=== PATIENT | male | born 1985 | race Caucasian/White ===

== ENCOUNTER 2017-06-07 13:19 | Inpatient (IN) | payer SELFPAY ==
[~2017-06-07] VITALS: Ht 180.3 cm; Wt 68.6 kg
[~2017-06-07 13:19] MED LIST: CEPHALEXIN500 MG PO; CORTISPORIN OTI10 ML AU; DOXYCYCL HYC100 M4 PO; NAPROSYN500 MG PO; NO; ULTRAM50 M1 PO
--- NOTE | 2017-06-07 14:04 | NUR ---
PT AMBULATED OUT TO WAITING ROOM W/SISTER IN LAW IN STABLE CONDITION. PT INFORMED TO GET ME OR REGISTRATION IF HE HAS ANY NEEDS OR CONCERNS.
--- NOTE | 2017-06-07 14:45 | NUR ---
CALLED TO COME TO ER. NOT IN LOBBY. LOOKED OUTSIDE. WILL CALL AGAIN LATER.
--- NOTE | 2017-06-07 15:09 | NUR ---
RETURNED TO WAITING ROOM
--- NOTE | 2017-06-07 15:50 | NUR ---
TO ROOM 10 WITH SLOW BUT STEADY GAIT. STEPPING LIGHTLY
--- NOTE | 2017-06-07 16:34 | NUR ---
SBAR PRINTED TO FLOOR
[2017-06-07 16:53] LABS: HEMATOCRIT 44.4 % (39.0-50.0); HEMOGLOBIN 15.4 g/dl (14.0-18.0); IMMATURE GRANULOCYTES 0.3 % (0.0-1.0); MEAN CELL VOLUME 84.7 fL CALC (80.0-100.0); MEAN CORPUSCULAR HGB 29.4 pG CALC (26.0-32.0); MEAN CORPUSCULAR HGB CONC 34.7 g/L CALC (32.0-36.0); NEUT# 6.92 thou/uL (1.82-7.42); RED BLOOD COUNT 5.24 mill/uL (4.70-6.10); RED CELL DISTRI WIDTH 12.4 % (11.5-15.5)
--- NOTE | 2017-06-07 16:58 | NUR ---
MD AT BEDSIDE TO DISCUSS PLAN OF CARE.
--- NOTE | 2017-06-07 17:03 | NUR ---
ATTEMPT MADE TO CALL REPORT, SPOKE TO MARTHA. STATES "THE NURSE IS IN A ROOM, SHE WILL CALL YOU RIGHT BACK."
[2017-06-07 17:08] LABS: ALBUMIN 4.1 g/dL (3.2-5.0); ALKALINE PHOSPHATASE 73 u/l (38-126); ANION GAP 15 (6-22 (CALC)); BILIRUBIN, TOTAL 0.5 mg/dL (0.0-1.4); BUN 7 mg/dL (9-20); BUN/CREATININE RATIO 8 (12-20 (CALC)); CALCIUM 9.9 mg/dL (8.4-10.2); CARBON DIOXIDE 25 mmol/l (22-30); CHLORIDE 103 mmol/l (95-108); CREATININE 0.9 mg/dL (0.7-1.3); GFR > 60 ML/MIN (>=60 (CALC)); GFR FOR AFR.AMER. > 60 ML/MIN (>=60 (CALC)); GLUCOSE 104 mg/dL (75-110); POTASSIUM 3.8 mmol/l (3.5-5.1); SGOT/AST 33 u/l (17-59); SGPT/ALT 34 u/l (21-72); SODIUM 139 mmol/l (137-146); TOTAL PROTEIN 6.3 g/dL (6.3-8.2)
--- NOTE | 2017-06-07 17:09 | NUR ---
REPORT GIVEN TO BARTOLO CASTELAN.
[2017-06-07 17:16] VITALS: BP 118/73
--- NOTE | 2017-06-07 17:20 | NUR ---
PATIENT TRANSPORTED TO [facility] VIA STRETCHER IN STABLE CONDITION. BEDSIDE REPORT GIVEN TO BARTOLO CASTELAN. CARE RELINQUISHED.
--- NOTE | 2017-06-07 17:46 | NUR ---
PT ARRIVED TO FLOOR VIA STRETCHER ACCOMPANIED BY BARTOLO FUENTES. PT REPORTS SEVERE RECTAL PAIN, UNRELIEVED BY DILAUDID ADMINISTRATION IN ED. SIGNIFICANT OTHER AT BEDSIDE. REPORTING OF CONCERNS ENCOURAGED. PT ORIENTED TO ROOM AND EQUIPMENT. CALL LIGHT REVIEWED AND IN REACH. PT STATES UNDERSTANDING.
--- NOTE | 2017-06-07 18:00 | NUR ---
DR. STUBBS NOTIFIED OF CONSULT. NEW ORDERS FOR NPO, WARM SITZ BATH PRN AND DILAUDID.
--- NOTE | 2017-06-07 19:05 | NUR ---
REPORT RECEIVED FROM BARTOLO CASTELAN;PT RESTING IN BED WATCHING TV;PT EDUCATED ON PAIN MEDICATION SCHEDULE AND VERBALIZES UNDERSTANDING;POC DISCUSSED;PT DENIES ANY OTHER NEEDS AT THIS TIME;CALL LIGHT IN REACH;WILL CONTINUE TO MONITOR
[2017-06-07 19:20] VITALS: BP 136/75
--- NOTE | 2017-06-07 21:30 | NUR ---
PT COMPLAINS OF RECTAL PAIN RATING 8/10 ON THE PAIN SCALE AND REQUESTS PAIN MEDICATION;PT MEDICATED WITH PRN DILAUDID 0.5MG IVP,WILL MONITOR FOR EFFECT;ASSESSMENT COMPLETED;PT REFUSES WARM SITZ BATH AT THIS TIME;STATING "THATS NOT GONNA HAPPEN";RESPIRATIONS EVEN AND UNLABORED ON RA;CLEAR LUNG SOUNDS NOTED;#20G TO LEFT HAND INFUSING NS @ 150ML/HR WELL;PT RE-EDUCATED ABOUT NPO DIET STATUS AFTER MIDNIGHT;URINAL AT BEDSIDE;PT DENIES ANY OTHER NEEDS AND IS ENCOURAGED TO CALL FOR ASSISTANCE IF NEEDED;BED IN THE LOWEST POSITION WITH CALL LIGHT IN REACH;WILL CONTINUE TO MONITOR
--- NOTE | 2017-06-08 00:15 | NUR ---
PT AMBULATING BACK FROM BATHROOM WITH WEAK GAIT;IV FLUIDS INFUSING WELL TO LEFT HAND;PT MADE NPO AT THIS TIME;PT DENIES ANY NEEDS;BED IN LOWEST POSITION WITH CALL LIGHT IN REACH;WILL CONTINUE TO MONITOR
--- NOTE | 2017-06-08 04:40 | NUR ---
PT COMPLAINS OF PAIN TO THE RECTUM RATING 10/10 ON THE PAIN SCALE AND REQUESTS PAIN MEDICATION;PT MEDICATED WITH DILAUDID 0.5MG IVP;IV FLUIDS INFUSING WELL TO LEFT HAND;PT REMAINS NPO AT THIS TIME;PT DENIES ANY OTHER NEEDS;CALL LIGHT IN REACH;WILL CONTINUE TO MONITOR
[2017-06-08 05:46] VITALS: BP 122/72
--- NOTE | 2017-06-08 07:00 | NUR ---
RECEIVED BEDSIDE REPORT FROM SHARMILA GRIMES. RESTING IN BED WITH EYES CLOSED, AWAKEN SEASILY. RESPS EVEN AND UNLABORED ON ROOM AIR. #20 LH INFUSING WITHOUT DIFFICULTY, SITE APPEARS HEALTHY. REPORTS PAIN AT CONSTANT 10, WILL MEDICATE PER MAR. PLAN OF CARE DISCUSSED. SAFETY PRECAUTIONS REINFORCED. BED IN LOWEST POSITION WITH WHEELS LOCKED. CALL LIGHT WITHIN REACH. WILL CONTINUE TO MONITOR.
--- NOTE | 2017-06-08 08:00 | NUR ---
RECEIVED REPORT FROM SYDNEY DOLL. PT WAS AWAKE IN BED. PT ASSESSMENT COMPLETED. PT A&O X3. EYES PERRLA. RESPIRATIONS EVEN AND UNLABORED. LUNGS SOUNDS CLEAR. HR NORMAL. BOWEL SOUNDS ACTIVE. IV #20G TO LEFT HAND INFUSING NS @ 150ML/HR, INFUSING WELL W/ NO IRRITATIONS. PT STATED PAIN 8/10 IN RECTAL AREA. PT REMAINS NPO. PT REEDUCATED TO CALL FOR ASSISSTANCE. CALL LIGHT PLACED WITHIN REACH. WILL CONTINUE TO MONITOR.
--- NOTE | 2017-06-08 08:05 | NUR ---
DR STUBBS AT BEDSIDE, NEW ORDERS RECEIVED.
--- NOTE | 2017-06-08 08:30 | NUR ---
MEDICATED WITH DILAUDID 1MG IVP FOR C/O 10/10 RECTAL PAIN.
--- NOTE | 2017-06-08 08:30 | NUR ---
DR STUBBS ATTEMPTING HEMARRHOID REDUCTION AT BEDSIDE. CONSENT SIGNED, TIME OUT COMPLETED. PT TOLERATED FAIR. BED IN LOWEST POSITION WITH WHEELS LOCKED. WILL MEDICATE FOR PAIN PER MAR. CALL LIGHT WITHIN REACH.
--- NOTE | 2017-06-08 09:55 | NUR ---
MEDICATED WITH DILAUDUD 1MG IVP FOR C/O 10/10 RECTAL PAIN.
--- NOTE | 2017-06-08 10:17 | NUR ---
DR. STUBBS AT BEDSIDE TO COMPLETE REDUCTION OF THROMBOSED HEMORRIOD. PT TOLERATED FAIR. NO ACTIVE BLEEDING AFTER COMPLETION OF PROCEDURE. PT LEFT PRONE FOR COMFORT. PT TO REMAIN NPO. CALL LIGHT WITHIN REACH. WILL CONTINUE TO MONITOR.
--- NOTE | 2017-06-08 10:50 | NUR ---
REPORTS HEMARRHOIDS "HAVE POPPED BACK OUT AGAIN." DR STUBBS NOTIFIED. AWAITING NEW ORDERS.
--- NOTE | 2017-06-08 12:10 | NUR ---
report received from Avtar Loza RN; care assumed
--- NOTE | 2017-06-08 12:19 | NUR ---
awake in bed lying on right side; pt admits to pain rating 8/10; pt states "i'm holding my insides in"; will medicate as per orders/frequency; call light within reach; will continue to monitor
--- NOTE | 2017-06-08 12:35 | NUR ---
Dr Amador and ISAAC Ramirez at bedside
--- NOTE | 2017-06-08 15:57 | NUR ---
awake conversing on cell phone; no distress noted; iv patent; call light within reach
[2017-06-08 16:00] VITALS: BP 129/58
--- NOTE | 2017-06-08 16:22 | NUR ---
Talked to patient today about his medical conditions and his medications. Patient reported pain scale of 10 after his procedure of thrombosed hemorrhoids. Discussed about side effects of hydrocortisone, lidocain 2% topical, and dilaudid. Patient reported no side effects with these medications. Patient has no other questions to the pharmacy at this time.
--- NOTE | 2017-06-08 16:32 | NUR ---
report given to Avtar Loza RN
--- NOTE | 2017-06-08 16:45 | NUR ---
RESUMED CARE FROM MK MCFARLAND. RESTING IN BED ON RIGHT SIDE. RESPS EVEN AND UNLABORED ON ROOM AIR. MEDICATED WITH DILAUDID 1MG IVP FOR C/O 10/10 RECTAL PAIN. ENCOURAGED PT TO REFRAIN FROM CONSTANTLY TOUCHING RECTAL AREA. CALL LIGHT WITHIN REACH. WILL CONTINUE TO MONITOR.
[2017-06-08 19:00] VITALS: BP 123/62
--- NOTE | 2017-06-08 19:35 | NUR ---
PT RESTING IN BED. RESP EVEN AND UNLABORED. LUNGS CLEAR BILAT; NO DISTRESS NOTED. ABD SOFT ACTIVE BOWEL SOUNDS. PEDAL PULSES PALPATED BILAT. IV RH PATENT; NO REDNESS OR EDEMA NOTED. FREQUENT ROUNDS MADE. PT ENCOURAGED TO CALL FOR ASSISTANCE. PT STATES RECTAL PAIN; WILL MEDICATE PER ORDERS/FREQUENCY. BED CHANGED; PT REPOSITIONED FOR COMFORT. CALL LIGHT WITHIN REACH.
[2017-06-09] VITALS (10 sets, daily range): BP systolic 110–162; BP diastolic 55–91
--- NOTE | 2017-06-09 00:25 | NUR ---
PT RESTING IN BED WATCHING TV. IV PATENT; NO REDNESS OR EDEMA NOTED. PT STATES RECTAL PAIN; WILL MEDICATE PER ORDERS/ FREQUENCY. SAFETY PRECAUTIONS REINFORCED. CALL LIGHT WITHIN REACH.
--- NOTE | 2017-06-09 04:25 | NUR ---
PT RESTING IN BED; WOKE FOR VITALS. RESP EVEN AND UNLABORED. ASSESSMENT UNCHANGED. FAMILY AT BEDSIDE. SAFETY PRECAUTIONS REINFORCED. PT EDUCATED ON IMPORTANCE OF NPO DIET. CALL LIGHT WITHIN REACH.
[2017-06-09 04:57] LABS: IMMATURE GRANULOCYTES 0.3 % (0.0-1.0); MEAN CELL VOLUME 86.7 fL CALC (80.0-100.0); MEAN CORPUSCULAR HGB 29.6 pG CALC (26.0-32.0); MEAN CORPUSCULAR HGB CONC 34.1 g/L CALC (32.0-36.0); NEUT# 5.31 thou/uL (1.82-7.42); RED BLOOD COUNT 4.73 mill/uL (4.70-6.10)
--- NOTE | 2017-06-09 07:00 | NUR ---
RECEIVED BEDSIDE REPORT FROM THAD GRIMES. RESTING IN BED TALKING ON TELEPHONE. RESPS EVEN AND UNLABORED ON ROOM AIR. #20 RH INFUSING WITHOUT DIFFICULTY, SITE APPEARS HEALTHY. REPORTS MEDICATION "DOES NOT REALLY HELP THE PAIN." WILL MEDICATE PER MAR. PLAN OF CARE DISCUSSED. NPO STATUS ENCOURAGED. SAFETY PRECAUTIONS REINFORCED. BED IN LOWEST POSITION WITH WHEELS LOCKED. CALL LIGHT WITHIN REACH. ENCOURAGED PT TO CALL FOR ANY NEEDS.
--- NOTE | 2017-06-09 10:25 | NUR ---
RECEIVED PHONE CALL FROM DR STUBBS, NEW ORDERS RECEIVED.
[2017-06-09 11:47] LABS: COCAINE NEGATIVE (NEGATIVE); METHADONE NEGATIVE (NEGATIVE); TETRAHYDROCANNABIONOL POSITIVE (NEGATIVE); TRICYLIC ANTIDEPRESSANTS NEGATIVE (NEGATIVE)
[2017-06-09 11:48] LABS: BARBITURATES NEGATIVE (NEGATIVE); OXCYCODONE NEGATIVE (NEGATIVE)
--- NOTE | 2017-06-09 15:39 | NUR ---
TO OR VIA STRETCHER ACCOMPANIED BY JAVIER MCFARLAND.
--- NOTE | 2017-06-09 19:40 | NUR ---
PT TRANSPORTED BACK TO MED/SURG ROOM 268 IN STABLE CONDITION ACCOMPANIED BY BARTOLO MCQUEEN;PT TRANSFERRED TO BED WITH 2 PERSON ASSIST;BEDSIDE REPORT RECEIVED;VS BEING OBTAIN BY JODI MCCANN AND TO BE DONE EVERY 15MINS PER POST OP ORDERS;MILTON CATHETER HANGING TO GRAVITY DRAINING CLEAR/YELLOW URINE;WHILE RE-POSITIONING IN BED PT DISLODGE IV SITE;SITE REMOVED WITH CATHETER INTACT;PT DENIES ANY PAIN AND IS EDUCATED ON PAIN SCALE AND REPORTING;WILL CONTINUE TO MONITOR
--- NOTE | 2017-06-09 21:00 | NUR ---
PT RESTING IN SEMI FOWLERS WITH VISITOR AT BEDSIDE;PT COMPLAINS OF MILTON CATHETER DISCOMFORT;MILTON PATENT WITH LEG STRAP IN PLACE DRAINING CLEAR/YELLOW URINE;ABDOMEN SOFT UPON PALPATION;PT REPORTS PAIN TO BE A 3/10 ON THE PAIN SCALE;PT AND WRITTER DISCUSS POSSIBLE BLADDER SCAN IF THE PAIN CONTINUES;PT DENIES ANY NEEDS AT THIS TIME;PT TOLERATED PO WATER AND FOODS WELL;ASSESSMENT COMPLETED;RESPIRATIONS EVEN AND UNLABORED ON RA;PT UNABLE TO MOVE LOWER EXTREMITIES DUE TO SPINAL BLOCK GIVEN IN OR;SCD'S IN PLACE;DRESSING TO RECTUM REMAINS CDI;ALL SAFETY PRECAUTIONS REINFORCED;PT EDUCATED TO CALL FOR ASSISTANCE IF NEEDED;CALL LIGHT IN REACH;WILL CONTINUE TO MONITOR
--- NOTE | 2017-06-09 23:40 | NUR ---
PT COMPLAINS OF INCREASED PAIN TO RECTAL AREA RATING 10/10 ON THE PAIN SCALE; NOTIFED AND NEW ORDER RECEIVED
--- NOTE | 2017-06-10 00:10 | NUR ---
VS BEING OBTAINED BY JODI MCCANN;PT REPORTS GREEN DISCHARGE COMING FOR CATHETER INSERTION SITE;PT NOTED TO BE VERY ANXIOUS;MD NOTIFED,ORDERS FOR CULTURE AND CLARIFICATION ON PAIN MEDICATION RECEIVED
[2017-06-10 00:18] VITALS: BP 149/83
--- NOTE | 2017-06-10 00:43 | NUR ---
PT MEDICATED WITH PERCOCET 10/325MG PO FOR RECTAL CRAMPING RATING 10/10 ON THE PAIN SCALE,WILL MONITOR FOR EFFECTIVENESS;MILTON CATHETER REMAINS PATENT;PT DENIES ANY NEEDS AT THIS TIME;CALL LIGHT IN REACH;WILL CONTINUE TO MONITOR
--- NOTE | 2017-06-10 01:20 | NUR ---
PT REPORTS DECREASED PAIN TO RECTUM RATING 5/10 ON THE PAIN SCALE
[2017-06-10 05:05] VITALS: BP 145/56
--- NOTE | 2017-06-10 05:05 | NUR ---
PT APPEARS TO BE SLEEPING IN SUPINE POSITION WITHOUT ANY S/S OF DISTRESS NOTED;WOKE PT TO OBTAIN VS;PT VERY GUARDED THIS MORNING;REPORTING PAIN TO BE A 10/10 ON THE PAIN SCALE;PT MEDICATED WITH PRN PERCOCET 10/325MG PO;MILTON CATHETER PATENT AND HANGING TO GRAVITY;IT SHOULD BE NOTED PT HELD MEDICATION IN HAND AND WAITED FOR WRITTER TO LEAVE BEFORE TAKING IT;WRITTER ASKED PT TO TAKE MEDICATION WHILE SHE WAS STILL IN THE ROOM AND PT REPLIED BY CHEWING IT WITH HIS TEETH, WITH NO WATER;CURRENT TEMP 100.0,WILL MONITOR EFFECT OF PERCOCET ON TEMP;PT DENIES ANY NEEDS;CALL LIGHT IN REACH
--- NOTE | 2017-06-10 07:00 | NUR ---
RECEIVED BEDSIDE REPORT FROM SHARMILA GRIMES. FOUND PT STANDING AT SIDE OF BED WITH HANDS IN BUTT, DRESSINGS TO [place] AREA REMOVED. MILTON PATENT, DRAINING MADDY COLORED URINE. ASSISTED PT TO BED, ENCOURAGED TO REMAIN IN BED, AVOID TOUCHING SURGICAL SITE OR MILTON CATH. PLAN OF CARE DISCUSSED. SAFETY PRECAUTIONS REINFORCED. BED IN LOWEST POSITION WITH WHEELS LOCKED. CALL LIGHT WITHIN REACH. ENCOURAGED PT TO CALL FOR ANY NEEDS.
[2017-06-10 07:14] LABS: HEMOGLOBIN 14.7 g/dl (14.0-18.0)
[2017-06-10 08:00] VITALS: BP 127/72
--- NOTE | 2017-06-10 08:15 | NUR ---
DR BABCOCK IN WITH PT, NEW ORDERS RECEIVED.
[2017-06-10] MEDS ORDERED: TRAMADOL HCL50 MG PO (08:19)
[2017-06-10] MEDS ORDERED: DOXYCYCL HYC100 MG PO (08:19)
--- NOTE | 2017-06-10 09:15 | NUR ---
IN TO REMOVE PTS MILTON AND MEDICATE W/ IM ROCEPHIN AND DOXYCYCLINE PO. PT STATES THAT HE ATTEMPTED TO REMOVE MILTON CATHER HIMSELF THIS AM. I INSTRUCTED THAT THERE IS A BALLOON IN PLACE TO KEEP THE MILTON FROM BEING DISLODGED AND THAT WE HAVE TO TAKE THE SALINE OUT TO DEFLATE THE BALLOON. PT INDICATES UNDERSTANDING. 10CC'S OF SALINE REMOVED FROM MILTON AND 16FR MILTON REMOVED FROM PT W/ GREEN MUCOUS STRAND AT END. PT TOLERATED WELL AND STATES THAT HE FELT THE NEED TO URINATE. PT WAS INSTRUCTED THAT IT IS NORMAL TO FEEL THIS AND THAT HIS BLADDER IS EMPTY FROM THE MILTON CATHETER. PT INDICATES UNDERSTANDING. IM ROCEPHIN GIVEN TO RT BUTTOCK AND PO DOXYCYCLINE GIVEN.URINAL GIVEN AND INSTRUCTED TO CALL FOR ASSISTANCE THAT URINATION NEEDS TO BE MONITORED BY NURSING. PT TOLERATES WELL. WILL CONTINUE TO MONITOR.
--- NOTE | 2017-06-10 10:54 | NUR ---
MEDICATED WITH TYLENOL PO FOR C/O 10 RECTAL PAIN. PO FLUIDS OFFERED. CALL LIGHT WITHIN REACH. WILL CONTINUE TO MONITOR.
--- NOTE | 2017-06-10 13:33 | NUR ---
Saw pt for medication discharge education. Pt was attempting to urinate. Explained that nurse said he can leave as soon as he successfully urinates. Pt reports pain of 9/10 today but denies N/V/D or other symptoms. Pt explains that the outcome of the surgery "doesn't look right". Explained discharge meds. Told pt the importance of taking doxycycline as written until the end of therapy. Warned pt not to take calcium, milk, or magnesium products with doxycycline. Explained tramadol dosing and cautioned pt about seizure risk. Pt had no further questions or concerns. Wished pt a happy birthday.
--- NOTE | 2017-06-10 14:58 | NUR ---
PT REPORTS NOT ABLE TO VOID. BEDSIDE BLADDER SCAN SHOWS 30ML, C/O NO PAIN, NO DISTENSION NOTED. [facility] NOTIFIED.
--- NOTE | 2017-06-10 15:45 | NUR ---
Discharge instructions given. Patient verbalizes understanding of same. Discharged in stable condition via Wheelchair to Home with family. All belongings sent with pt.
== END 2017-06-10 15:45 | disposition home or self-care (01) | DRG 349 ==
LOC: ED 13:19 → ED-I 16:21 → ED 16:38 → MS2 16:39
PROVIDERS: Emergency Medicine; Nurse Practitioner Family; ADMIT Internal Medicine; ATTEND Internal Medicine
PROC: 06BY3ZC Excision of Hemorrhoidal Plexus, Percutaneous Approach (ICD-10-PCS; principal; 2017-06-09)
DX: K64.3 Fourth degree hemorrhoids (principal); F12.10 Cannabis abuse, uncomplicated; F17.210 Nicotine dependence, cigarettes, uncomplicated; F15.10 Other stimulant abuse, uncomplicated; R36.9 Urethral discharge, unspecified
CPT/HCPCS: C9290

== ENCOUNTER 2017-06-14 18:34 | Emergency (ER) | payer SELFPAY ==
[~2017-06-14] VITALS: Ht 180.3 cm; Wt 75.0 kg
[~2017-06-14 18:34] MED LIST changes: +DOXYCYCL HYC100 MG PO; +TRAMADOL HCL50 MG PO
[2017-06-14 19:06] LABS: URINE BILIRUBIN - DIPSTICK NEGATIVE (NEGATIVE); URINE BLOOD DIPSTICK NEGATIVE (NEGATIVE); URINE COLOR YELLOW; URINE GLUCOSE - DIPSTICK NEGATIVE (NEGATIVE); URINE KETONE NEGATIVE (NEGATIVE); URINE LEUK ESTERASE NEGATIVE (NEGATIVE); URINE NITRITE - DIPSTICK NEGATIVE (Negative); URINE PH 7.5 (4.5-8.0); URINE PROTEIN - DIPSTICK NEGATIVE (NEG-TRACE); URINE UROBILINOGEN - DIPSTICK 0.2 E.U./dL (0.2)
[2017-06-14 19:08] LABS: URINE CLARITY CLEAR
[2017-06-14 19:53] LABS: HEMATOCRIT 43.2 % (39.0-50.0); HEMOGLOBIN 13.9 g/dl (14.0-18.0); IMMATURE GRANULOCYTES 0.9 % (0.0-1.0); MEAN CELL VOLUME 91.3 fL CALC (80.0-100.0); MEAN CORPUSCULAR HGB 29.4 pG CALC (26.0-32.0); MEAN CORPUSCULAR HGB CONC 32.2 g/L CALC (32.0-36.0); NEUT# 3.84 thou/uL (1.82-7.42); RED BLOOD COUNT 4.73 mill/uL (4.70-6.10); RED CELL DISTRI WIDTH 12.8 % (11.5-15.5)
[2017-06-14 20:05] LABS: ALBUMIN 3.7 g/dL (3.2-5.0); ALKALINE PHOSPHATASE 145 u/l (38-126); AMYLASE 63 u/l (30-110); ANION GAP 12 (6-22 (CALC)); BILIRUBIN, TOTAL 0.3 mg/dL (0.0-1.4); BUN 5 mg/dL (9-20); BUN/CREATININE RATIO 6 (12-20 (CALC)); CARBON DIOXIDE 32 mmol/l (22-30); CHLORIDE 101 mmol/l (95-108); CREATININE 0.8 mg/dL (0.7-1.3); GFR > 60 ML/MIN (>=60 (CALC)); GFR FOR AFR.AMER. > 60 ML/MIN (>=60 (CALC)); LIPASE 76 u/l (23-300); POTASSIUM 4.1 mmol/l (3.5-5.1); SGOT/AST 55 u/l (17-59); SGPT/ALT 94 u/l (21-72); SODIUM 142 mmol/l (137-146); TOTAL PROTEIN 6.2 g/dL (6.3-8.2)
[2017-06-14 21:23] VITALS: BP 121/75
== END 2017-06-14 21:48 | disposition home or self-care (01) | DRG 696 ==
LOC: ED 18:34
PROVIDERS: Emergency Medicine
PROC: 0T9B70Z Drainage of Bladder with Drainage Device, Via Natural or Artificial Opening (ICD-10-PCS; principal; 2017-06-14)
DX: R33.9 Retention of urine, unspecified (principal); F17.210 Nicotine dependence, cigarettes, uncomplicated; R39.15 Urgency of urination; Z98.890 Other specified postprocedural states

== ENCOUNTER 2022-12-13 10:03 | Emergency (ER) | payer SELFPAY ==
[~2022-12-13] VITALS: Ht 180.3 cm; Wt 81.0 kg
[2022-12-13 10:09] VITALS: BP 134/96
[2022-12-13 10:17] VITALS: BP 110/76
[2022-12-13 10:35] VITALS: BP 132/94
[2022-12-13 10:52] LABS: BASO% 0.5 % (0-3); EOS% 1.2 % (0-8); HEMATOCRIT 42.6 % (39.0-50.0); HEMOGLOBIN 14.4 g/dl (14.0-18.0); IMMATURE GRANULOCYTES 0.3 % (0.0-5.0); LYMPH% 20.6 % (15-41); MEAN CORPUSCULAR HGB 28.7 pG CALC (26.0-32.0); MEAN CORPUSCULAR HGB CONC 33.8 g/dL CAL (32.0-36.0); MONO% 9.1 % (2-13); NEUT# 7.5 thou/uL (1.82-7.42); NEUT% 68.3 % (42-76); RED BLOOD COUNT 5.01 mill/uL (4.70-6.10); RED CELL DISTRI WIDTH 12.6 % (11.5-15.5)
[2022-12-13 10:57] LABS: BUN 17 mg/dL (9-20); BUN/CREATININE RATIO 17 (12-20 (CALC)); CARBON DIOXIDE 27 mmol/l (22-30); CHLORIDE 99 mmol/l (95-108); ETHYL ALCOHOL 0 mg/dl (0-30); GFR FOR AFR.AMER. > 60 ML/MIN (>=60 (CALC)); GFR OTHER RACES > 60 ML/MIN (>=60 (CALC)); SGOT/AST 40 u/l (17-59); SODIUM 138 mmol/l (137-146)
[2022-12-13 10:58] LABS: ALBUMIN 4.7 g/dL (3.2-5.0); ALKALINE PHOSPHATASE 68 u/l (38-126); ANION GAP 15 (6-22 (CALC)); BILIRUBIN, TOTAL 1.9 mg/dL (0.2-1.3); TOTAL PROTEIN 7.9 g/dL (6.3-8.2)
[2022-12-13] MEDS ORDERED: DILANTIN100 MG PO (13:46)
[2022-12-13 14:10] VITALS: BP 132/94
== END 2022-12-13 14:43 | disposition home or self-care (01) | DRG 101 ==
LOC: ED 10:03
PROVIDERS: Family Medicine
DX: R56.9 Unspecified convulsions (principal); J45.909 Unspecified asthma, uncomplicated; F17.210 Nicotine dependence, cigarettes, uncomplicated; Z59.00 Homelessness unspecified; Z87.820 Personal history of traumatic brain injury